=== PATIENT | male | born 1985 | race Caucasian/White ===

== ENCOUNTER 2016-09-11 05:43 | Inpatient (IN) | payer OTHER ==
[~2016-09-11] VITALS: Ht 172.7 cm; Wt 74.2 kg
[2016-09-11] VITALS (15 sets, daily range): BP systolic 83–119; BP diastolic 38–78
[2016-09-11 06:11] LABS: CREATININE 1.2 mg/dL (0.6-1.3); POTASSIUM 3.9 mEq/L (3.7-5.4)
[2016-09-11 06:26] LABS: O2 FLOW 15 L/MIN; SITE LR
[2016-09-11 06:27] LABS: DEVICE NRBM; FI02 100 %; PCO2 29 mm Hg (35-45); PO2 123 mm Hg (80-100); pH 7.41 (7.35-7.45)
[2016-09-11 06:28] LABS: BASE EXCESS -4.8 mEq/L (-3 to +3); BICARBONATE 18.4 mEq/L (22-26); CARBOXY HGB 3.1 % (0-5); METHEMOGLOBIN 1.2 % (0-1.5)
[2016-09-11 06:29] LABS: COMMENTS - BLOOD GASES C+A+
[2016-09-11 06:29] LABS: CHLORIDE 102 mEq/L (99-109); SODIUM 139 mEq/L (136-147)
[2016-09-11 06:31] LABS: GLUCOSE 212 mg/dL (70-99)
[2016-09-11 06:32] LABS: ANION GAP 16 MEQ/L (2-14)
[2016-09-11 06:33] LABS: TOTAL BILIRUBIN 0.9 mg/dL (0.0-1.0)
[2016-09-11 06:34] LABS: SERUM ETHYL ALCOHOL < 10 mg/dL
[2016-09-11 06:35] LABS: GFR ESTIMATE (CALCULATED) 58 mL/min/
[2016-09-11 06:36] LABS: ALKALINE PHOSPHATASE 105 IU/L (3-129); DIRECT BILIRUBIN 0.3 mg/dL (0.0-0.3)
[2016-09-11 06:37] LABS: UREA NITROGEN (BUN) 17 mg/dL (9-23)
[2016-09-11 06:38] LABS: SALICYLATE < 5.0 MG/DL (15-30)
[2016-09-11 06:41] LABS: HEMATOCRIT 40.6 % (38.0-50.0); MCV 84.8 FL (86-99); MEAN PLAT.VOLUME 9.5 uM^3 (9.0-12.4); PLATELET COUNT 363 K/uL (156-360); RBC DIS.WIDTH-SD 46.8 % (39-53); RED BLOOD COUNT 4.79 M/uL (4.00-5.50); WHITE BLOOD COUNT 15.5 K/uL (4.1-10.2)
[2016-09-11 07:14] LABS: TROP-I INTERPRETATION POSITIVE; TROPONIN-I 0.71 ng/mL (0.0-0.30)
[2016-09-11 08:46] LABS: ADD MEDTOX COMMENT Y; AMPHETAMINE PRESUMPTIVE POSITIVE (500 ng/mL); BARBITURATES NEGATIVE (200 ng/mL); BENZODIAZEPINES NEGATIVE (150 ng/mL); COCAINE NEGATIVE (150 ng/mL); INTERNAL CONTROLS VALID? YES; METHADONE NEGATIVE (200 ng/mL); METHAMPHETAMINE PRESUMPTIVE POSITIVE (500 ng/mL); OPIATES (MORPHINE) PRESUMPTIVE POSITIVE (100 ng/mL); OXYCODONE NEGATIVE (100 ng/mL); PHENCYCLIDINE NEGATIVE (25 ng/mL); PROPOXYPHENE NEGATIVE (300 ng/mL); THC CANNABINOIDS NEGATIVE (50 ng/mL); TRICYCLIC ANTIDEPRESSANTS NEGATIVE (300 ng/mL)
[2016-09-11] MEDS ORDERED: ZUBSOLV 5.7-1.1 EACH SL (09:17)
[2016-09-11 10:24] LABS: POINT-OF-CARE METER ID UU14100415
[2016-09-11 10:53] LABS: BASE EXCESS -10.2 mEq/L (-3 to +3); CARBOXY HGB 1.5 % (0-5); COMMENTS - BLOOD GASES A+C+; METHEMOGLOBIN 0.9 % (0-1.5); PCO2 47 mm Hg (35-45); PO2 126 mm Hg (80-100); SITE LR; pH 7.19 (7.35-7.45)
[2016-09-11 10:54] LABS: DEVICE 840PB; FI02 100 %; MECHANICAL RATE 20 resp/min; MODE AC; PEEP 10 CM/H20; TIDAL VOLUME 550 ML; TOTAL RESP RATE 20 resp/min
[2016-09-11 14:57] LABS: BASE EXCESS -5.8 mEq/L (-3 to +3); BICARBONATE 16.9 mEq/L (22-26); CARBOXY HGB 1.7 % (0-5); COMMENTS - BLOOD GASES C+A-N/A; DEVICE 840 VENTILATOR; FI02 50 %; MECHANICAL RATE 18 resp/min; METHEMOGLOBIN 1.3 % (0-1.5); MODE AC/PC; PCO2 26 mm Hg (35-45); PO2 184 mm Hg (80-100); SITE LR; TOTAL RESP RATE 18 resp/min; pH 7.42 (7.35-7.45)
[2016-09-11 14:58] LABS: INSPIRATION TIME 0.95 seconds; PEEP 10 CM/H20; PRESSURE CONTROL VENTILATION 18 CM H20
[2016-09-11 15:00] LABS: ADD MIUA? YES; BILIRUBIN NEGATIVE; BLOOD MODERATE; COLOR YELLOW ((YELLOW)); GLUCOSE (STRIP) 50; KETONES 20; LEUKOCYTES NEGATIVE; NITRITE NEGATIVE; PROTEIN (STRIP) NEGATIVE; SPECIFIC GRAVITY 1.045 (1.000-1.030); UROBILINOGEN 0.2 MG/DL (0.2-1.0)
[2016-09-11 15:17] LABS: MAGNESIUM 1.8 mg/dL (1.3-2.7)
[2016-09-11 15:21] LABS: TOTAL BILIRUBIN 0.8 mg/dL (0.0-1.0)
[2016-09-11 15:22] LABS: ALKALINE PHOSPHATASE 101 IU/L (3-129)
[2016-09-11 15:22] LABS: UR CREATININE CONCENTRATION 141.3 MG/DL
[2016-09-11 15:24] LABS: DIRECT BILIRUBIN 0.3 mg/dL (0.0-0.3)
[2016-09-11 15:25] LABS: CREATINE KINASE 151 IU/L (1-294)
[2016-09-11 15:34] LABS: BACTERIA RARE /HPF; EPITHELIAL CELLS RARE /HPF; MUCUS 1+ /LPF; RED BLOOD CELLS TNTC /HPF (0-5); UCUL ADDED? NO; WHITE BLOOD CELLS 0-5 /HPF (0-5)
[2016-09-11 16:16] LABS: METH RESISTANT S AUREUS PCR NEGATIVE (NEGATIVE)
[2016-09-11 16:28] LABS: PROBE CHECK PASS; SPECIMEN PROCESSING CONTROL PASS
[2016-09-11 18:27] LABS: POINT-OF-CARE METER ID UU14208751
[2016-09-11 19:35] LABS: BASE EXCESS -7.2 mEq/L (-3 to +3); BICARBONATE 15.8 mEq/L (22-26); CARBOXY HGB 1.5 % (0-5); METHEMOGLOBIN 1.3 % (0-1.5); PCO2 25 mm Hg (35-45); PO2 113 mm Hg (80-100); pH 7.41 (7.35-7.45)
[2016-09-11 19:36] LABS: COMMENTS - BLOOD GASES C+; DEVICE VENT; FI02 40 %; MECHANICAL RATE 8 resp/min; MODE SIMV; PEEP 10 CM/H20; PRES. SUPPORT 7 CM/H2O; SITE ALINE; TIDAL VOLUME 500 ML; TOTAL RESP RATE 32 resp/min
[2016-09-12] VITALS (10 sets, daily range): BP systolic 109–141; BP diastolic 71–92
[2016-09-12 00:25] LABS: POINT-OF-CARE METER ID UU14208751
[2016-09-12 05:40] LABS: EOSINOPHIL (%) 0.1 % (0-5); HEMATOCRIT 36.7 % (38.0-50.0); IMMATURE GRANULOCYTE (%) 0.4 % (0.0-0.7); IMMATURE GRANULOCYTE COUNT 0.1 K/uL; INSTRUMENT ABS NEUTROPHIL CT 11.2 K/uL; LYMPHOCYTE COUNT 2.9 K/uL (1.0-2.8); MCH 28.1 PG (29.0-34.0); MCHC 33.5 G/DL (30.0-36.0); MEAN PLAT.VOLUME 9.6 uM^3 (9.0-12.4); MONOCYTE (%) 9.7 % (3-12); MONOCYTE COUNT 1.5 K/uL (0-0.8); NEUTROPHIL (%) 71.3 % (45-76); NEUTROPHIL COUNT 11.2 K/uL (1.8-6.4); PLATELET COUNT 359 K/uL (156-360); RBC DIS.WIDTH-CV 15.7 % (11.8-14.6); RBC DIS.WIDTH-SD 48.4 % (39-53); RED BLOOD COUNT 4.37 M/uL (4.00-5.50); WHITE BLOOD COUNT 15.8 K/uL (4.1-10.2)
[2016-09-12 06:05] LABS: ALKALINE PHOSPHATASE 66 IU/L (3-129); ANION GAP 10 MEQ/L (2-14); CHLORIDE 112 MEQ/L (99-109); CHLORIDE 113 MEQ/L (99-109); GFR ESTIMATE (CALCULATED) > 59 mL/min/; GLUCOSE 121 mg/dL (70-99); MAGNESIUM 1.7 mg/dl (1.3-2.7); POTASSIUM 4.3 MEQ/L (3.7-5.4); SAMPLE HEMOLYSIS CHECK 0; SAMPLE ICTERIC CHECK 0; SAMPLE LIPEMIA CHECK 0; SODIUM 140 MEQ/L (136-147); SODIUM 142 MEQ/L (136-147); TOTAL BILIRUBIN 0.5 MG/DL (0.0-1.0); UREA NITROGEN (BUN) 13 mg/dL (9-23); UREA NITROGEN (BUN) 14 mg/dL (9-23)
[2016-09-12 06:09] LABS: GFR ESTIMATE (CALCULATED) > 59 mL/min/; GLUCOSE 120 mg/dL (70-99)
[2016-09-12 11:17] LABS: HBSG INDEX 0.29
[2016-09-12 11:19] LABS: ANTI-HEPATITIS A VIRUS (IGM) Nonreactive; ANTI-HEPATITIS B CORE (IGM) Nonreactive; HAV INDEX 0.25; HBC IgM INDEX 0.08
[2016-09-12 11:20] LABS: HIV INDEX 0.09; HIV-1/2 AB/AG COMBO Nonreactive
[2016-09-12 11:23] LABS: TREPONEMA ANTIBODY NEGATIVE (NEGATIVE)
[2016-09-12 13:51] LABS: POINT-OF-CARE METER ID UU13113748
[2016-09-12 15:30] LABS: ANION GAP 10 MEQ/L (2-14); CHLORIDE 109 MEQ/L (99-109); POTASSIUM 4.2 MEQ/L (3.7-5.4); SAMPLE HEMOLYSIS CHECK 0; SAMPLE ICTERIC CHECK 0; SAMPLE LIPEMIA CHECK 0; SODIUM 139 MEQ/L (136-147)
[2016-09-12 15:36] LABS: GFR ESTIMATE (CALCULATED) > 59 mL/min/; GLUCOSE 135 mg/dL (70-99); UREA NITROGEN (BUN) 12 mg/dL (9-23)
[2016-09-12 18:30] LABS: POINT-OF-CARE METER ID UU13113748
[2016-09-12 19:18] LABS: ANION GAP 13 MEQ/L (2-14); CHLORIDE 108 MEQ/L (99-109); GFR ESTIMATE (CALCULATED) > 59 mL/min/; GLUCOSE 146 mg/dL (70-99); POTASSIUM 4.1 MEQ/L (3.7-5.4); SAMPLE HEMOLYSIS CHECK 1; SAMPLE ICTERIC CHECK 0; SAMPLE LIPEMIA CHECK 0; SODIUM 140 MEQ/L (136-147); UREA NITROGEN (BUN) 11 mg/dL (9-23)
[2016-09-12 23:53] LABS: POINT-OF-CARE METER ID UU13113748
[2016-09-13 01:17] LABS: BASE EXCESS 2.2 mEq/L (-3 to +3); CARBOXY HGB 1.5 % (0-5); COMMENTS - BLOOD GASES C+; DEVICE VENT; FI02 30 %; METHEMOGLOBIN 1.6 % (0-1.5); MODE SPONT; PCO2 32 mm Hg (35-45); PEEP 5 CM/H20; PO2 94 mm Hg (80-100); PRES. SUPPORT 10 CM/H2O; SITE ALINE; TOTAL RESP RATE 31 resp/min
[2016-09-13 01:53] LABS: EOSINOPHIL (%) 0.3 % (0-5); IMMATURE GRANULOCYTE (%) 0.4 % (0.0-0.7); IMMATURE GRANULOCYTE COUNT 0.1 K/uL; INSTRUMENT ABS NEUTROPHIL CT 9.5 K/uL; LYMPHOCYTE COUNT 2.4 K/uL (1.0-2.8); MCH 26.9 PG (29.0-34.0); MCHC 32.7 G/DL (30.0-36.0); MCV 82.2 FL (86-99); MEAN PLAT.VOLUME 9.6 uM^3 (9.0-12.4); MONOCYTE (%) 9.5 % (3-12); MONOCYTE COUNT 1.3 K/uL (0-0.8); NEUTROPHIL (%) 71.2 % (45-76); NEUTROPHIL COUNT 9.5 K/uL (1.8-6.4); PLATELET COUNT 298 K/uL (156-360); RBC DIS.WIDTH-CV 15.5 % (11.8-14.6); RBC DIS.WIDTH-SD 47.2 % (39-53); WHITE BLOOD COUNT 13.3 K/uL (4.1-10.2)
[2016-09-13 02:03] LABS: CHLORIDE 102 mEq/L (99-109); POTASSIUM 3.6 mEq/L (3.7-5.4)
[2016-09-13 02:05] LABS: GLUCOSE 134 mg/dL (70-99)
[2016-09-13 02:07] LABS: ANION GAP 9 MEQ/L (2-14)
[2016-09-13 02:09] LABS: GFR ESTIMATE (CALCULATED) > 59 mL/min/
[2016-09-13 02:10] LABS: UREA NITROGEN (BUN) 10 mg/dL (9-23)
[2016-09-13 02:26] LABS: MAGNESIUM 1.5 mg/dL (1.3-2.7); SODIUM 132 mEq/L (136-147)
[2016-09-13 06:19] LABS: POINT-OF-CARE METER ID UU13113748
[2016-09-13 12:43] LABS: POINT-OF-CARE METER ID UU13113748
[2016-09-13 16:22] LABS: ANION GAP 13 MEQ/L (2-14); CHLORIDE 106 MEQ/L (99-109); GFR ESTIMATE (CALCULATED) > 59 mL/min/; GLUCOSE 123 mg/dL (70-99); SAMPLE HEMOLYSIS CHECK 0; SAMPLE ICTERIC CHECK 0; SAMPLE LIPEMIA CHECK 0; SODIUM 141 MEQ/L (136-147); UREA NITROGEN (BUN) 9 mg/dL (9-23)
[2016-09-13 16:23] LABS: POTASSIUM 6.2 MEQ/L (3.7-5.4)
[2016-09-13 18:53] LABS: POINT-OF-CARE METER ID UU14208751
[2016-09-13 19:02] LABS: ANION GAP 10 MEQ/L (2-14); CHLORIDE 106 MEQ/L (99-109); GFR ESTIMATE (CALCULATED) > 59 mL/min/; GLUCOSE 128 mg/dL (70-99); SAMPLE HEMOLYSIS CHECK 0; SAMPLE ICTERIC CHECK 0; SAMPLE LIPEMIA CHECK 0; SODIUM 142 MEQ/L (136-147); UREA NITROGEN (BUN) 10 mg/dL (9-23)
[2016-09-13 19:04] LABS: POTASSIUM 4.1 MEQ/L (3.7-5.4)
[2016-09-13 23:25] LABS: BASE EXCESS 2.9 mEq/L (-3 to +3); BICARBONATE 25.1 mEq/L (22-26); CARBOXY HGB 1.4 % (0-5); COMMENTS - BLOOD GASES C+; DEVICE NCH; METHEMOGLOBIN 1.2 % (0-1.5); O2 FLOW 12 L/MIN; PCO2 30 mm Hg (35-45); PO2 80 mm Hg (80-100); SITE A-LINE; TOTAL RESP RATE 27 resp/min; pH 7.53 (7.35-7.45)
[2016-09-14 01:13] LABS: POINT-OF-CARE METER ID UU13113803
[2016-09-14 04:57] LABS: EOSINOPHIL (%) 0.1 % (0-5); HEMATOCRIT 33.8 % (38.0-50.0); IMMATURE GRANULOCYTE (%) 0.4 % (0.0-0.7); IMMATURE GRANULOCYTE COUNT 0.1 K/uL; INSTRUMENT ABS NEUTROPHIL CT 9.2 K/uL; MCH 27.8 PG (29.0-34.0); MCHC 33.4 G/DL (30.0-36.0); MONOCYTE (%) 7.4 % (3-12); MONOCYTE COUNT 0.9 K/uL (0-0.8); NEUTROPHIL (%) 75.2 % (45-76); NEUTROPHIL COUNT 9.2 K/uL (1.8-6.4); PLATELET COUNT 260 K/uL (156-360); RBC DIS.WIDTH-CV 15.5 % (11.8-14.6); RBC DIS.WIDTH-SD 47.2 % (39-53); RED BLOOD COUNT 4.07 M/uL (4.00-5.50); WHITE BLOOD COUNT 12.3 K/uL (4.1-10.2)
[2016-09-14 05:12] LABS: CHLORIDE 109 mEq/L (99-109); POTASSIUM 4.5 mEq/L (3.7-5.4); SODIUM 143 mEq/L (136-147)
[2016-09-14 05:14] LABS: GLUCOSE 118 mg/dL (70-99); MAGNESIUM 1.9 mg/dL (1.3-2.7)
[2016-09-14 05:15] LABS: ANION GAP 10 MEQ/L (2-14)
[2016-09-14 05:18] LABS: GFR ESTIMATE (CALCULATED) > 59 mL/min/
[2016-09-14 05:19] LABS: UREA NITROGEN (BUN) 17 mg/dL (9-23)
[2016-09-14 09:00] VITALS: BP 122/82
[2016-09-14 10:00] VITALS: BP 122/82
[2016-09-14 12:00] VITALS: BP 121/89
[2016-09-14 16:00] VITALS: BP 117/86
[2016-09-14 20:00] VITALS: BP 126/96
[2016-09-14 23:30] VITALS: BP 115/65
[2016-09-15 03:57] VITALS: BP 116/67
[2016-09-15 06:34] LABS: EOSINOPHIL (%) 0.2 % (0-5); HEMATOCRIT 39.2 % (38.0-50.0); IMMATURE GRANULOCYTE (%) 0.4 % (0.0-0.7); IMMATURE GRANULOCYTE COUNT 0.1 K/uL; INSTRUMENT ABS NEUTROPHIL CT 11.1 K/uL; LYMPHOCYTE COUNT 1.8 K/uL (1.0-2.8); MCH 27.3 PG (29.0-34.0); MCHC 32.4 G/DL (30.0-36.0); MCV 84.1 FL (86-99); MEAN PLAT.VOLUME 10.2 uM^3 (9.0-12.4); MONOCYTE (%) 6.2 % (3-12); MONOCYTE COUNT 0.9 K/uL (0-0.8); NEUTROPHIL (%) 80.3 % (45-76); NEUTROPHIL COUNT 11.1 K/uL (1.8-6.4); PLATELET COUNT 294 K/uL (156-360); RBC DIS.WIDTH-CV 15.6 % (11.8-14.6); RBC DIS.WIDTH-SD 47.3 % (39-53); RED BLOOD COUNT 4.66 M/uL (4.00-5.50); WHITE BLOOD COUNT 13.8 K/uL (4.1-10.2)
[2016-09-15 07:02] LABS: ANION GAP 10 MEQ/L (2-14); CHLORIDE 106 MEQ/L (99-109); GFR ESTIMATE (CALCULATED) > 59 mL/min/; GLUCOSE 106 mg/dL (70-99); MAGNESIUM 1.9 mg/dl (1.3-2.7); POTASSIUM 3.8 MEQ/L (3.7-5.4); SAMPLE HEMOLYSIS CHECK 0; SAMPLE ICTERIC CHECK 0; SAMPLE LIPEMIA CHECK 0; SODIUM 143 MEQ/L (136-147); UREA NITROGEN (BUN) 18 mg/dL (9-23)
[2016-09-15 07:41] VITALS: BP 118/72
[2016-09-15 11:16] VITALS: BP 141/82
[2016-09-15 15:33] VITALS: BP 112/69
[2016-09-15 19:41] VITALS: BP 136/93
[2016-09-15 23:37] VITALS: BP 138/86
[2016-09-16 06:41] LABS: EOSINOPHIL (%) 1.2 % (0-5); EOSINOPHIL COUNT 0.1 K/uL (0-0.3); HEMATOCRIT 36.5 % (38.0-50.0); IMMATURE GRANULOCYTE (%) 0.4 % (0.0-0.7); INSTRUMENT ABS NEUTROPHIL CT 7.8 K/uL; LYMPHOCYTE COUNT 1.8 K/uL (1.0-2.8); MCH 27.3 PG (29.0-34.0); MCHC 32.6 G/DL (30.0-36.0); MCV 83.7 FL (86-99); MEAN PLAT.VOLUME 10.5 uM^3 (9.0-12.4); MONOCYTE (%) 7.1 % (3-12); MONOCYTE COUNT 0.8 K/uL (0-0.8); NEUTROPHIL COUNT 7.8 K/uL (1.8-6.4); PLATELET COUNT 293 K/uL (156-360); RBC DIS.WIDTH-CV 15.6 % (11.8-14.6); RED BLOOD COUNT 4.36 M/uL (4.00-5.50); WHITE BLOOD COUNT 10.5 K/uL (4.1-10.2)
[2016-09-16 07:22] LABS: ANION GAP 10 MEQ/L (2-14); CHLORIDE 104 MEQ/L (99-109); GFR ESTIMATE (CALCULATED) > 59 mL/min/; GLUCOSE 99 mg/dL (70-99); MAGNESIUM 1.8 mg/dl (1.3-2.7); POTASSIUM 3.4 MEQ/L (3.7-5.4); SAMPLE HEMOLYSIS CHECK 0; SAMPLE ICTERIC CHECK 0; SAMPLE LIPEMIA CHECK 0; SODIUM 139 MEQ/L (136-147); UREA NITROGEN (BUN) 16 mg/dL (9-23)
[2016-09-16 08:06] VITALS: BP 126/82
[2016-09-16 15:27] LABS: C DIFF TOXIN NEGATIVE (NEGATIVE); PROBE CHECK PASS; SPECIMEN PROCESSING CONTROL PASS
[2016-09-16 15:56] VITALS: BP 136/92
[2016-09-16 23:10] VITALS: BP 111/62
[2016-09-17 06:35] LABS: EOSINOPHIL (%) 2.1 % (0-5); EOSINOPHIL COUNT 0.2 K/uL (0-0.3); HEMATOCRIT 34.9 % (38.0-50.0); IMMATURE GRANULOCYTE (%) 0.4 % (0.0-0.7); INSTRUMENT ABS NEUTROPHIL CT 7.2 K/uL; LYMPHOCYTE COUNT 1.6 K/uL (1.0-2.8); MCH 28.8 PG (29.0-34.0); MCHC 34.4 G/DL (30.0-36.0); MCV 83.9 FL (86-99); MEAN PLAT.VOLUME 10.4 uM^3 (9.0-12.4); MONOCYTE (%) 7.2 % (3-12); MONOCYTE COUNT 0.7 K/uL (0-0.8); NEUTROPHIL (%) 73.6 % (45-76); NEUTROPHIL COUNT 7.2 K/uL (1.8-6.4); PLATELET COUNT 311 K/uL (156-360); RBC DIS.WIDTH-CV 15.8 % (11.8-14.6); RBC DIS.WIDTH-SD 47.7 % (39-53); RED BLOOD COUNT 4.16 M/uL (4.00-5.50); WHITE BLOOD COUNT 9.8 K/uL (4.1-10.2)
[2016-09-17 07:10] LABS: ANION GAP 8 MEQ/L (2-14); CHLORIDE 105 MEQ/L (99-109); GFR ESTIMATE (CALCULATED) > 59 mL/min/; GLUCOSE 97 mg/dL (70-99); MAGNESIUM 1.7 mg/dl (1.3-2.7); SAMPLE HEMOLYSIS CHECK 0; SAMPLE ICTERIC CHECK 0; SAMPLE LIPEMIA CHECK 0; SODIUM 141 MEQ/L (136-147); UREA NITROGEN (BUN) 14 mg/dL (9-23)
[2016-09-17 07:13] LABS: POTASSIUM 4.1 MEQ/L (3.7-5.4)
[2016-09-17 07:56] VITALS: BP 127/75
[2016-09-17 12:12] VITALS: BP 136/92
[2016-09-17 16:53] VITALS: BP 143/90
[2016-09-18 00:48] VITALS: BP 122/83
[2016-09-18 07:22] LABS: EOSINOPHIL (%) 3.4 % (0-5); EOSINOPHIL COUNT 0.4 K/uL (0-0.3); HEMATOCRIT 38.9 % (38.0-50.0); IMMATURE GRANULOCYTE (%) 0.4 % (0.0-0.7); INSTRUMENT ABS NEUTROPHIL CT 7.6 K/uL; LYMPHOCYTE COUNT 1.6 K/uL (1.0-2.8); MCH 28.3 PG (29.0-34.0); MCHC 33.9 G/DL (30.0-36.0); MCV 83.5 FL (86-99); MEAN PLAT.VOLUME 10.3 uM^3 (9.0-12.4); MONOCYTE (%) 7.4 % (3-12); MONOCYTE COUNT 0.8 K/uL (0-0.8); NEUTROPHIL (%) 72.9 % (45-76); NEUTROPHIL COUNT 7.6 K/uL (1.8-6.4); PLATELET COUNT 352 K/uL (156-360); RBC DIS.WIDTH-CV 16.1 % (11.8-14.6); RBC DIS.WIDTH-SD 47.2 % (39-53); RED BLOOD COUNT 4.66 M/uL (4.00-5.50); WHITE BLOOD COUNT 10.4 K/uL (4.1-10.2)
[2016-09-18 07:51] VITALS: BP 141/88
[2016-09-18 08:55] LABS: ANION GAP 12 MEQ/L (2-14); CHLORIDE 106 MEQ/L (99-109); GFR ESTIMATE (CALCULATED) > 59 mL/min/; GLUCOSE 91 mg/dL (70-99); MAGNESIUM 1.9 mg/dl (1.3-2.7); POTASSIUM 3.8 MEQ/L (3.7-5.4); SAMPLE HEMOLYSIS CHECK 0; SAMPLE ICTERIC CHECK 0; SAMPLE LIPEMIA CHECK 0; SODIUM 142 MEQ/L (136-147); UREA NITROGEN (BUN) 12 mg/dL (9-23)
[2016-09-18 15:44] VITALS: BP 149/89
[2016-09-19 01:05] VITALS: BP 128/75
[2016-09-19 06:45] LABS: EOSINOPHIL (%) 3.8 % (0-5); EOSINOPHIL COUNT 0.4 K/uL (0-0.3); HEMATOCRIT 38.9 % (38.0-50.0); IMMATURE GRANULOCYTE (%) 0.4 % (0.0-0.7); IMMATURE GRANULOCYTE COUNT 0.1 K/uL; INSTRUMENT ABS NEUTROPHIL CT 8.3 K/uL; LYMPHOCYTE COUNT 1.8 K/uL (1.0-2.8); MCH 28.9 PG (29.0-34.0); MCHC 34.4 G/DL (30.0-36.0); MCV 83.8 FL (86-99); MEAN PLAT.VOLUME 9.9 uM^3 (9.0-12.4); MONOCYTE (%) 7.4 % (3-12); MONOCYTE COUNT 0.9 K/uL (0-0.8); NEUTROPHIL (%) 72.2 % (45-76); NEUTROPHIL COUNT 8.3 K/uL (1.8-6.4); PLATELET COUNT 359 K/uL (156-360); RBC DIS.WIDTH-CV 16.4 % (11.8-14.6); RBC DIS.WIDTH-SD 48.4 % (39-53); RED BLOOD COUNT 4.64 M/uL (4.00-5.50); WHITE BLOOD COUNT 11.5 K/uL (4.1-10.2)
[2016-09-19 07:09] LABS: ANION GAP 9 MEQ/L (2-14); CHLORIDE 105 MEQ/L (99-109); GFR ESTIMATE (CALCULATED) > 59 mL/min/; GLUCOSE 99 mg/dL (70-99); MAGNESIUM 1.9 mg/dl (1.3-2.7); SAMPLE HEMOLYSIS CHECK 0; SAMPLE ICTERIC CHECK 0; SAMPLE LIPEMIA CHECK 0; SODIUM 139 MEQ/L (136-147); UREA NITROGEN (BUN) 10 mg/dL (9-23)
[2016-09-19 08:05] VITALS: BP 136/86
[2016-09-19] MEDS ORDERED: CEFTIN500 MG PO (10:25)
== END 2016-09-19 12:57 | disposition home or self-care (01) | DRG 917 ==
LOC: EME → EDBD 05:43 → EDOF 12:22 → 4WEST 12:22 → 3EAST 12:22 → 4WEST 13:12 → 3EAST 09-14 21:51
PROVIDERS: Emergency Medicine; Internal Medicine; Internal Medicine Critical Care Medicine; Internal Medicine Nephrology; Obstetrics & Gynecology; Student in an Organized Health Care Education/Training Program
PROC: 0BH17EZ Insertion of Endotracheal Airway into Trachea, Via Natural or Artificial Opening (ICD-10-PCS; principal; 2016-09-11)
PROC: 02HV33Z Insertion of Infusion Device into Superior Vena Cava, Percutaneous Approach (ICD-10-PCS; principal; 2016-09-11)
PROC: 5A1945Z Respiratory Ventilation, 24-96 Consecutive Hours (ICD-10-PCS; principal; 2016-09-11)
PROC: 03HY32Z Insertion of Monitoring Device into Upper Artery, Percutaneous Approach (ICD-10-PCS; principal; 2016-09-11)
PROC: 02HV33Z Insertion of Infusion Device into Superior Vena Cava, Percutaneous Approach (ICD-10-PCS; 2016-09-13)
DX: T43.621A Poisoning by amphetamines, accidental (unintentional), initial encounter (principal); R57.1 Hypovolemic shock; J96.01 Acute respiratory failure with hypoxia; J69.0 Pneumonitis due to inhalation of food and vomit; J15.9 Unspecified bacterial pneumonia; E86.1 Hypovolemia; N17.9 Acute kidney failure, unspecified; T40.1X1A Poisoning by heroin, accidental (unintentional), initial encounter; F11.20 Opioid dependence, uncomplicated; F15.10 Other stimulant abuse, uncomplicated; F17.200 Nicotine dependence, unspecified, uncomplicated; F19.239 Other psychoactive substance dependence with withdrawal, unspecified; Z88.0 Allergy status to penicillin; R40.1 Stupor; J81.0 Acute pulmonary edema; R40.2433 Glasgow coma scale score 3-8, at hospital admission
CPT/HCPCS: 36600; 70450; 71010; 71275; 74177; 80047; 80048; 80048 91; 80053; 80074; 80076; 81003; 82550; 82570; 82803; 82948; 83605; 83735; 84100; 84156; 84484; 84999; 85025; 85027; 86703; 86780; 87040; 87070; 87205; 87493; 87641; 93005; 94002; 94003; 94640; 94640 76; 94799; 99202; 99281; 99285; C1751; G0480; J0692; J0696; J1644; J1650; J1815; J1940; J2250; J2405; J2704; J2997; J3010; J3260; J3370; J3475; J3480; J7030; J7050; J7120; S0028; S0030